=== PATIENT | female | born 1995 | race Caucasian/White ===

== ENCOUNTER 2018-09-03 18:06 | Emergency (ER) | payer MEDICARE, OTHER ==
[~2018-09-03] VITALS: Ht 165.1 cm; Wt 55.0 kg
[2018-09-03 18:13] VITALS: Ht 165.1 cm; Wt 55.0 kg
--- NOTE | 2018-09-03 19:05 | ERD ---
ER Documentation Chief Complaint Chief Complaint pt is bib with "bump behind right ear" x 4 days ROS All systems reviewed and are negative except as per history of present illness. Allergies Allergies: Coded Allergies: acetaminophen (Verified Allergy, Mild, 09/03/18) hydrocodone (Verified Allergy, Mild, 09/03/18) Physical Exam Vitals Vital Signs Date Temp Pulse Resp B/P (MAP) Pulse Ox O2 O2 Flow FiO2 Time Delivery Rate 09/03/18 98.3 73 16 114/61 99 18:13 (78) Physical Exam Const: No acute distress Head: Atraumatic Eyes: Normal Conjunctiva ENT: Normal External Ears, Nose and Mouth. Neck: Full range of motion. No meningismus. Resp: Clear to auscultation bilaterally Cardio: Regular rate and rhythm, no murmurs Abd: Soft, non tender, non distended. Normal bowel sounds Skin: No petechiae or rashes Back: No midline or flank tenderness Ext: No cyanosis, or edema Neur: Awake and alert Psych: Normal Mood and Affect Departure Diagnosis: Primary Impression: Cellulitis, face Condition: Stable Additional Instructions: Thank you very much for allowing us to participate in your care. Your health and safety is our top priority at [facility]. The evaluation in the emergency department has been done to rule out an acute emergency. Chronic, [id number] conditions may have not been evaluated; therefore, you need to follow up with a primary care provider in the next 48h. If symptoms persist, worsen or new symptoms develop, then patient should return to the ED immediately. Call your primary care doctor TOMORROW for an appointment during the next 2-4 days and bring all the information provided. Have prescriptions filled and follow precisely the directions on the label. If the symptoms get worse and your provider is unavailable, return to the Emergency Department immediately. WALT CASTANEDA MD Sep 03, 2018 19:05
[2018-09-03] MEDS ORDERED: CEPH-443 PO (19:06)
[2018-09-03] MEDS ORDERED: SULF1TAB31 PO (19:06)
[2018-09-03] MEDS ORDERED: IBUP-1561 PO (19:06)
== END 2018-09-03 19:15 | disposition home or self-care (01) ==
LOC: E/R 18:06
DX: L03.211 Cellulitis of face (principal)
CPT/HCPCS: 99283